=== PATIENT | female | born 1990 | race Caucasian/White ===

== ENCOUNTER 2019-02-08 11:28 | Emergency (ER) | payer MEDICAID ==
[~2019-02-08] VITALS: Wt 78.0 kg
[2019-02-08 11:30] VITALS: BP 125/58; PULSE 89; RESP 18
== END 2019-02-08 15:22 | disposition home or self-care (01) ==
LOC: FTE 11:28
DX: O20.9 Hemorrhage in early pregnancy, unspecified (principal); Z3A.00 Weeks of gestation of pregnancy not specified
CPT/HCPCS: 36415; 76801; 76817; 81001; 84702; 85025; 86900; 86901; Z7502